=== PATIENT | female | born 1995 | race Caucasian/White ===

== ENCOUNTER 2017-06-12 17:31 | Emergency (ER) | payer OTHER ==
[~2017-06-12] VITALS: Ht 160 cm; Wt 48.5 kg
--- NOTE | 2017-06-12 17:38 | ED.ADGEN ---
Past History Past Medical History: UTI, Other Adult General Chief Complaint Chief Complaint " I think I got a really bad UTI... I get them.. just all sudden ... fever chills.. nausea and vomiting..." HPI HPI Patient is a 21 year old female who presents with above hx and complaints abdomen pain, fever, chills, myalgia, arthralgia and dysuria. Pt. has a history of urinary tract infections. She no history of immunosuppression. No history of travel or ill contacts. No history of bad food. No history of trauma. Patient has had 3 lifetime sex partners. Currently had a recent check for STD. Which was negative. One current sex partner. She has had previous appendectomy Review of Systems Review of Systems Constitutional: Complaints of fever or chills [] Eyes: Denies change in visual acuity, redness, or eye pain [] HENT: Denies nasal congestion or sore throat [] Respiratory: Denies cough or shortness of breath [] Cardiovascular: No additional information not addressed in HPI [] GI: Hx. abdominal pain, nausea,. Denies vomiting, bloody stools or diarrhea [] : Hx dysuria or hematuria [] Musculoskeletal: Denies back pain or joint pain [] Integument: Denies rash or skin lesions [] Neurologic: Denies headache, focal weakness or sensory changes [] Endocrine: Denies polyuria or polydipsia [] All other systems were reviewed and found to be within normal limits, except as documented in this note. Family History Family History Non-contributory Current Medications Current Medications Current Medications Medications (Trade) Dose Ordered Sig/Rahel Start Time Stop Time Status Last Admin Dose Admin Ceftriaxone Sodium 1 gm/ Sodium Chloride 50 ml @ 100 mls/hr 1X ONCE 06/12/17 21:00 06/12/17 21:29 DC 06/12/17 21:13 100 MLS/HR Ceftriaxone Sodium (Rocephin) 1 gm STK-MED ONCE 06/12/17 21:08 06/12/17 21:09 DC Famotidine (Pepcid Vial) 20 mg 1X ONCE 06/12/17 18:15 06/12/17 18:16 DC 06/12/17 18:55 20 MG Lactated Ringer's 1,000 ml @ 1,000 mls/hr Q1H 06/12/17 18:15 06/12/17 18:56 DC 06/12/17 18:56 1,000 MLS/HR Ondansetron HCl (Zofran) 8 mg 1X ONCE 06/12/17 18:15 06/12/17 18:16 DC 06/12/17 18:55 4 MG Oxycodone/ Acetaminophen (Percocet 5/325) 2 tab 1X ONCE 06/12/17 18:15 06/12/17 18:16 DC 06/12/17 18:55 2 TAB Phenazopyridine HCl (Pyridium) 200 mg 1X ONCE 06/12/17 21:45 06/12/17 21:46 DC 06/12/17 21:47 200 MG Sodium Chloride 50 ml @ As Directed STK-MED ONCE 06/12/17 21:08 06/12/17 21:09 DC Allergies Allergies Allergies Coded Allergies Type Severity Reaction Last Updated Verified ibuprofen Allergy Intermediate 06/12/17 Yes Physical Exam Physical Exam Constitutional: Well developed, well nourished,moderate distress, non-toxic appearance. [] HENT: Normocephalic, atraumatic, bilateral external ears normal, oropharynx moist, no oral exudates, nose normal. Nasal ring. Eyes: PERRLA, EOMI, conjunctiva normal, no discharge. [] Neck: Normal range of motion, no tenderness, supple, no stridor. [] Cardiovascular:Heart rate regular rhythm, no murmur [] Lungs & Thorax: Bilateral breath sounds clear to auscultation [] Abdomen: Bowel sounds normal, soft, supra pubic tenderness, no masses, no pulsatile masses. Declines rectal and pelvic exam at this time. Old surgery scar Skin: Warm, dry, no erythema, no rash. [] Back: No tenderness, no CVA tenderness. [] Extremities: No tenderness, no cyanosis, no clubbing, ROM intact, no edema. No psoas. Neurologic: Alert and oriented X 3, normal motor function, normal sensory function, no focal deficits noted. [] Psychologic: Affect normal, judgement normal, mood normal. [] Current Patient Data Vital Signs Vital Signs Date Time Temp Pulse Resp B/P (MAP) Pulse Ox O2 Delivery O2 Flow Rate FiO2 06/12/17 21:45 98 16 113/62 (79) 98 Room Air 06/12/17 17:50 97.6 Lab Results Laboratory Tests Test 06/12/17 19:20 06/12/17 20:34 White Blood Count 10.0 x10^3/uL (4.0-11.0) Red Blood Count 4.47 x10^6/uL (3.50-5.40) Hemoglobin 13.7 g/dL (12.0-15.5) Hematocrit 40.3 % (36.0-47.0) Mean Corpuscular Volume 90 fL (79-100) Mean Corpuscular Hemoglobin 31 pg (25-35) Mean Corpuscular Hemoglobin Concent 34 g/dL (31-37) Red Cell Distribution Width 13.1 % (11.5-14.5) Platelet Count 220 x10^3/uL (140-400) Neutrophils (%) (Auto) 78 % (31-73) H Lymphocytes (%) (Auto) 17 % (24-48) L Monocytes (%) (Auto) 4 % (0-9) Eosinophils (%) (Auto) 0 % (0-3) Basophils (%) (Auto) 0 % (0-3) Neutrophils # (Auto) 7.8 x10^3uL (1.8-7.7) H Lymphocytes # (Auto) 1.7 x10^3/uL (1.0-4.8) Monocytes # (Auto) 0.4 x10^3/uL (0.0-1.1) Eosinophils # (Auto) 0.0 x10^3/uL (0.0-0.7) Basophils # (Auto) 0.0 x10^3/uL (0.0-0.2) Prothrombin Time 12.2 SEC (9.4-11.4) H Prothrombin Time INR 1.2 (0.9-1.1) H PTT 27 SEC (23-33) Urine Collection Type Unknown Urine Color Yellow Urine Clarity Cloudy Urine pH 6.0 Urine Specific [place] >=1.030 Urine Protein 30 mg/dl (NEG-TRACE) Urine Glucose (UA) Neg mg/dL (NEG) Urine Ketones (Stick) 40 mg/dL (NEG) Urine Blood Small (NEG) Urine Nitrite Pos (NEG) Urine Bilirubin Neg (NEG) Urine Urobilinogen Dipstick 0.2 mg/dL (0.2 mg/dL) Urine Leukocyte Esterase Trace (NEG) Urine RBC Occ /HPF (0-2) Urine WBC 11-20 /HPF (0-4) Urine Squamous Epithelial Cells Many /LPF Urine Bacteria 0 /HPF (0-FEW) Sodium Level 141 mmol/L (136-145) Potassium Level 3.9 mmol/L (3.5-5.1) Chloride Level 105 mmol/L (98-107) Carbon Dioxide Level 24 mmol/L (21-32) Anion Gap 12 (6-14) Blood Urea Nitrogen 10 mg/dL (7-20) Creatinine 0.5 mg/dL (0.6-1.0) L Estimated GFR (Cockcroft-Gault) 158.9 Glucose Level 91 mg/dL (70-99) Calcium Level 9.7 mg/dL (8.5-10.1) Total Bilirubin 0.6 mg/dL (0.2-1.0) Direct Bilirubin 0.2 mg/dL (0.0-0.2) Aspartate Amino Transferase (AST) 12 U/L (15-37) L Alanine Aminotransferase (ALT) 16 U/L (14-59) Alkaline Phosphatase 78 U/L (46-116) Total Protein 7.8 g/dL (6.4-8.2) Albumin 4.4 g/dL (3.4-5.0) Lipase 66 U/L (73-393) L Urine Opiates Screen Neg (NEG) Urine Methadone Screen Neg (NEG) Urine Barbiturates Neg (NEG) Urine Phencyclidine Screen Neg (NEG) Urine Amphetamine/Methamphetamine Neg (NEG) Urine Benzodiazepines Screen Neg (NEG) Urine Cocaine Screen Neg (NEG) Urine Cannabinoids Screen Neg (NEG) Urine Ethyl Alcohol Neg (NEG) POC Urine HCG, Qualitative hcg negative (Negative) EKG EKG [] Radiology/Procedures Radiology/Procedures Patient declines[] radiographically evaluation at this time Course & Med Decision Making Course & Med Decision Making Pertinent Labs and Imaging studies reviewed. (See chart for details) 2129 Pt. feels much better. Requesting discharge. Pt still declines pelvic. Pt, will discharged on Keflex 500 x3 times a day. Take Diflucan after completing Keflex. Follow-up cultures. Push vitamin C drinks. Recommended clear fluid diet. Must follow-up primary care. Must follow-up cultures. [] Final Impression Final Impression 1. Abdomen pain 2. UTI[] Problems: Dragon Disclaimer Dragon Disclaimer This electronic medical record was generated, in whole or in part, using a voice recognition dictation system. SERGIO MORATAYA MD Jun 12, 2017 17:38
[2017-06-12] MEDS ORDERED: IV RINGERS SOLUTION,LACTATED 1,000 ML IV SCH (18:15)
[2017-06-12] MEDS ORDERED: oxyCODONE/APAP 5/325 1 TAB TABLET PO ONE (18:15)
[2017-06-12] MEDS ORDERED: ONDANSETRON PF 4 MG/2 ML VIAL. IV ONE (18:15)
[2017-06-12] MEDS ORDERED: FAMOTIDINE 20 MG/2 ML VIAL IVP ONE (18:15)
[2017-06-12 20:12] LABS: BASO % 0 % (0-3); EOS % 0 % (0-3); HEMATOCRIT 40.3 % (36.0-47.0); HEMOGLOBIN 13.7 g/dL (12.0-15.5); LYMPH # 1.7 x10^3/uL (1.0-4.8); LYMPH % 17 % (24-48); MEAN CORPUSCULAR HEMOGLOBIN 31 pg (25-35); MEAN CORPUSCULAR HGB CONC 34 g/dL (31-37); MEAN CORPUSCULAR VOLUME 90 fL (79-100); MONO # 0.4 x10^3/uL (0.0-1.1); MONO % 4 % (0-9); NEUT # 7.8 x10^3uL (1.8-7.7); NEUT % 78 % (31-73); PLATELET COUNT 220 x10^3/uL (140-400); RED BLOOD COUNT 4.47 x10^6/uL (3.50-5.40); RED CELL DISTRIBUTION WIDTH 13.1 % (11.5-14.5)
[2017-06-12 20:21] LABS: AMPHETAMINE/METHAMPHETAMINE NEG (NEG); BARBITURATES NEG (NEG); BENZODIAZEPINES NEG (NEG); CANNABINOIDS NEG (NEG); COCAINE NEG (NEG); METHADONE NEG (NEG); OPIATES NEG (NEG); PHENCYCLIDINE NEG (NEG)
[2017-06-12 20:26] LABS: ALBUMIN 4.4 g/dL (3.4-5.0); CALCIUM 9.7 mg/dL (8.5-10.1); CREATININE 0.5 mg/dL (0.6-1.0); DIRECT BILIRUBIN 0.2 mg/dL (0.0-0.2); GFR 158.9; POTASSIUM 3.9 mmol/L (3.5-5.1); TOTAL BILIRUBIN 0.6 mg/dL (0.2-1.0); TOTAL PROTEIN 7.8 g/dL (6.4-8.2)
[2017-06-12 20:58] LABS: CLARITY,URINE CLOUDY; COLOR,URINE YELLOW
[2017-06-12 20:59] LABS: GLUCOSE,URINE NEG (NEG)
[2017-06-12 21:00] LABS: BILIRUBIN,URINE NEG (NEG); NITRITE,URINE POS (NEG); UROBILINOGEN,URINE 0.2 mg/dL (0.2 mg/dL)
[2017-06-12 21:01] LABS: BACTERIA,URINE 0 /HPF (0-FEW); RBC,URINE OCC /HPF (0-2); SQUAMOUS EPITHELIAL CELL,UR MANY /LPF
[2017-06-12] MEDS ORDERED: cefTRIAXone SODIUM 1 GM VIAL IV ONE (21:08)
[2017-06-12] MEDS ORDERED: IV NORMAL SALINE 50ML 50 ML ONE (21:08)
[2017-06-12] MEDS ORDERED: CEPH-264 PO (21:21)
[2017-06-12] MEDS ORDERED: FLUC100T7 PO (21:21)
[2017-06-12 21:45] VITALS: BP 113/62
[2017-06-12] MEDS ORDERED: PHENAZOPYRIDINE 200 MG TABLET. PO ONE (21:45)
== END 2017-06-12 21:52 | disposition home or self-care (01) ==
LOC: ER 17:31
DX: N39.0 Urinary tract infection, site not specified (principal); Z87.440 Personal history of urinary (tract) infections; Z90.49 Acquired absence of other specified parts of digestive tract; Z88.6 Allergy status to analgesic agent
CPT/HCPCS: 36415; 80048; 80076; 80307; 81001; 81025; 83690; 85025; 85610; 85730; 87086; 87186; 96361; 96365; 96375; 99284; J0696; J2405; J7120; S0028; G0479

== ENCOUNTER 2017-07-31 03:18 | Emergency (ER) | payer OTHER ==
[~2017-07-31] VITALS: Ht 160 cm; Wt 49.9 kg
[~2017-07-31 03:18] MED LIST: CEPH-264 PO; FLUC100T7 PO
[2017-07-31] MEDS ORDERED: KETOROLAC 60 MG/2 ML VIAL. IM ONE (04:00)
[2017-07-31] MEDS ORDERED: KETOROLAC 30 MG/ML VIAL. ONE (04:06)
[2017-07-31] MEDS ORDERED: METH35.4 TP (04:10)
[2017-07-31] MEDS ORDERED: CYCL-331 PO (04:10)
[2017-07-31] MEDS ORDERED: NAPR-695 PO (04:10)
--- NOTE | 2017-07-31 04:14 | PHYS DOC ---
Past History Past Medical History: UTI, Other Past Surgical History: Appendectomy Alcohol Use: None Drug Use: Marijuana Adult General Chief Complaint Chief Complaint: BACK PAIN - NO INJURY HPI HPI Patient is a 21-year-old female with no significant past medical history who presents with complaints of lower back pain that is been going ongoing for a couple days. Patient denies any history of fevers, trauma, recent illness, dysuria or unusual vaginal discharge. Patient also denies abdominal pain. Patient denies incontinence, retention, saddle anesthesia or weakness. Review of Systems Review of Systems Constitutional: Denies fever or chills [] Respiratory: Denies cough or shortness of breath [] Cardiovascular: No pain GI: Denies abdominal pain, nausea, vomiting, bloody stools or diarrhea [] : Denies dysuria or hematuria or unusual vaginal discharge Musculoskeletal: As per history of present illness Integument: Denies rash or skin lesions [] Neurologic: Denies headache, focal weakness or sensory changes [] All other systems were reviewed and found to be within normal limits, except as documented in this note. Allergies Allergies Allergies Coded Allergies Type Severity Reaction Last Updated Verified ibuprofen Allergy Intermediate 06/12/17 Yes Physical Exam Physical Exam Constitutional: Well developed, well nourished, no acute distress, no visible pain, non-toxic appearance. Smiles during exam HENT: Normocephalic, atraumatic, Eyes: EOMI, conjunctiva normal, no discharge. [] Neck: Normal range of motion, no tenderness, supple, no stridor. No midline tenderness, no step-offs Cardiovascular:Heart rate regular rhythm, no murmur, normal perfusion Lungs & Thorax: Bilateral breath sounds clear to auscultation, no tachypnea Abdomen: Bowel sounds normal, soft, no tenderness, no masses, no pulsatile masses. [] Skin: Warm, dry, no erythema, no rash. [] Back: No midline tenderness, no step-offs. Mild tenderness to palpation middle to low back at paraspinal muscles. Active raise of lower extremities reproduces symptoms while passive leg raising does to a much lesser degree per patient. Extremities: No tenderness, no DVT, ROM intact, no edema. [] Neurologic: Alert and oriented X 3, normal motor function, normal lower extremity Reflexes, no focal deficits noted. Patient ambulates in the ED with normal gait and without assistance Psychologic: Affect normal, judgement normal, mood normal. [] Current Patient Data Vital Signs Vital Signs Date Time Temp Pulse Resp B/P (MAP) Pulse Ox O2 Delivery O2 Flow Rate FiO2 07/31/17 03:24 97.9 90 18 99 Room Air EKG EKG [] Radiology/Procedures Radiology/Procedures [] Course & Med Decision Making Course & Med Decision Making Pertinent Labs and Imaging studies reviewed. (See chart for details) Differential diagnosis: Transverse myelitis, osteomyelitis, trauma, vascular problem, infection, spinal cord compression, musculoskeletal problem. Patient is no distress, not ill-appearing, nontoxic. Physical exam is very benign and palpation of the paraspinal muscles of the lower back refused the patient's symptoms. Patient is able to sit up in bed in no discomfort and without limitation. Patient does not have midline tenderness in the spine nor does she have abdominal pain on palpation. My suspicion for significant spinal, bony, vascular or abdominal process is very low at the time of this ED evaluation. Given that the patient's physical exam is rather benign at this time and she does not have any limitations of movement I believe the patient is in stable condition for outpatient follow-up. I do not believe the patient is in need of imaging or labs at this time. Strict return precautions have been discussed with the patient who agrees to follow-up as directed [] Dragon Disclaimer Dragon Disclaimer This electronic medical record was generated, in whole or in part, using a voice recognition dictation system. Departure Departure: Impression: Primary Impression: Low back pain Disposition: HOME, SELF-CARE Condition: STABLE Referrals: PCP,NO (PCP) Please follow with your doctor or one of the clinics in the list provided to you for recheck and reevaluation in 2 days. If your symptoms worsen or new concerning symptoms develop please return to the ED immediately. Patient Instructions: Back Pain, Adult, Heat Therapy Scripts Methyl Salicylate/Menthol (ICY HOT CREAM) 35.4 Gm Cream..g. 35.4 GM TP BID for 5 Days, #10 EACH Prov: Gaby BEST MD 07/31/17 Cyclobenzaprine Hcl (CYCLOBENZAPRINE HCL) 10 Mg Tablet 1 TAB PO TID for 5 Days, #15 TAB Prov: Gaby BEST MD 07/31/17 Naproxen (NAPROXEN) 375 Mg Tablet 1 TAB PO BID for 5 Days, #10 TAB 5 Refills Prov: Gaby BEST MD 07/31/17 Gaby BEST MD Jul 31, 2017 04:14
[2017-07-31 04:20] VITALS: BP 116/64
[2017-07-31] MEDS ORDERED: ORPHENADRINE CITRATE 60 MG/2 ML VIAL. IM ONE (04:30)
== END 2017-07-31 04:25 | disposition home or self-care (01) ==
LOC: ER 03:18
DX: M54.5 Low back pain (principal); F12.10 Cannabis abuse, uncomplicated; Z87.440 Personal history of urinary (tract) infections; Z88.6 Allergy status to analgesic agent
CPT/HCPCS: 81025; 96372; 99284; J1885; J2360

== ENCOUNTER 2017-10-29 15:08 | Emergency (ER) | payer OTHER ==
[~2017-10-29] VITALS: Ht 157.5 cm; Wt 48.6 kg
[~2017-10-29 15:08] MED LIST changes: +CYCL-331 PO; +METH35.4 TP; +NAPR-695 PO
[2017-10-29] MEDS ORDERED: IV NORMAL SALINE 1,000ML 1,000 ML IV SCH (15:31)
[2017-10-29] MEDS ORDERED: 0.9 % SODIUM CHLORIDE 10 ML DISP.SYRIN. IV PRN (15:45)
[2017-10-29 16:06] LABS: BASO % 0 % (0-3); EOS # 0.1 x10^3/uL (0.0-0.7); EOS % 2 % (0-3); HEMATOCRIT 36.3 % (36.0-47.0); HEMOGLOBIN 12.4 g/dL (12.0-15.5); LYMPH # 2.4 x10^3/uL (1.0-4.8); LYMPH % 32 % (24-48); MEAN CORPUSCULAR HEMOGLOBIN 31 pg (25-35); MEAN CORPUSCULAR HGB CONC 34 g/dL (31-37); MEAN CORPUSCULAR VOLUME 92 fL (79-100); MONO # 0.5 x10^3/uL (0.0-1.1); MONO % 6 % (0-9); NEUT # 4.6 x10^3uL (1.8-7.7); NEUT % 60 % (31-73); PLATELET COUNT 255 x10^3/uL (140-400); RED BLOOD COUNT 3.95 x10^6/uL (3.50-5.40); RED CELL DISTRIBUTION WIDTH 13.8 % (11.5-14.5); WHITE BLOOD COUNT 7.7 x10^3/uL (4.0-11.0)
[2017-10-29] MEDS ORDERED: ONDANSETRON PF 4 MG/2 ML VIAL. IV ONE (16:10)
[2017-10-29 16:15] LABS: ALBUMIN 3.8 g/dL (3.4-5.0); ALBUMIN/GLOBULIN RATIO 1.2 (1.0-1.7); CALCIUM 8.9 mg/dL (8.5-10.1); CREATININE 0.6 mg/dL (0.6-1.0); GFR 128.8; POTASSIUM 4.1 mmol/L (3.5-5.1); TOTAL BILIRUBIN 0.4 mg/dL (0.2-1.0)
--- NOTE | 2017-10-29 16:46 | RAD ---
Ultrasound pelvis with transvaginal 10/29/2017 Clinical indication: Lower back and flank pain for one day. COMPARISON: None. FINDINGS: Uterus measures 7.4 x 3.5 x 6.4 cm. Endometrium is normal in thickness for age measuring 0.4 cm without abnormal endometrial blood flow. At the left anterior mid uterine segment, there is a hypoechoic intramural structure measuring 1.5 x 0.8 x 1.2 cm with central internal blood flow. Right ovary measures 4.2 x 2.3 x 1.9 cm with multiple physiologic follicles. Spectral analysis evidence of the right ovary demonstrates arterial and venous waveforms. Left ovary measures 2.5 x 2.3 x 3.2 cm with multiple physiologic follicles. Spectral analysis evidence demonstrates arterial and venous waveforms of the left ovary. There is no significant pelvic free fluid. IMPRESSION: 1. No ovarian torsion or significant pelvic free fluid. 2. Small, 1.5 cm, myometrial mass with internal blood flow and does not have features consistent with a typical fibroid. Finding is indeterminate between benign and malignant etiologies. MRI pelvis without with contrast is recommended for further evaluation. Electronically signed by: Isidoro Aparicio MD (10/29/2017 4:43 PM) [id number]
[2017-10-29 16:47] LABS: BACTERIA,URINE 0 /HPF (0-FEW); BILIRUBIN,URINE NEG (NEG); CLARITY,URINE CLEAR; COLOR,URINE STRAW; GLUCOSE,URINE NEG (NEG); NITRITE,URINE NEG (NEG); RBC,URINE OCC /HPF (0-2); SQUAMOUS EPITHELIAL CELL,UR MOD /LPF; UROBILINOGEN,URINE 0.2 mg/dL (0.2 mg/dL)
[2017-10-29 16:48] LABS: AMORPHOUS SEDIMENT,UR PRESENT /HPF
[2017-10-29] MEDS ORDERED: CYCL5TAB PO (17:20)
[2017-10-29] MEDS ORDERED: ONDA4TAB10 SL (17:20)
--- NOTE | 2017-10-29 17:21 | PHYS DOC ---
Past History Past Medical History: UTI, Other Past Surgical History: Appendectomy Alcohol Use: None Drug Use: Marijuana Adult General Chief Complaint Chief Complaint: My kidney hurts HPI HPI 21-year-old female patient states she had intermittent episodes of bilateral mid back pain for the last 3 months and had history of frequent UTI. Patient complaining of bilateral mid back pain for the last 2 days as a constant pain with urinary frequency and dysuria. Patient states she was seen by her primary care physician yesterday and was told that she doesn't have UTI. Patient states she still has pain and had 2 episodes of vomiting yesterday and one episode of vomiting today without fever, chills, abdominal pain, vaginal discharge. Her LMP was 10/27/17. Review of Systems Review of Systems Constitutional: Denies fever or chills [] Eyes: Denies change in visual acuity, redness, or eye pain [] HENT: Denies nasal congestion or sore throat [] Respiratory: Denies cough or shortness of breath [] Cardiovascular: No additional information not addressed in HPI [] GI: Denies abdominal pain, bloody stools or diarrhea , reports nausea and vomiting[] : Reports flank pain, dysuria and frequency Musculoskeletal: Denies back pain or joint pain [] Integument: Denies rash or skin lesions [] Neurologic: Denies headache, focal weakness or sensory changes [] Endocrine: Denies polyuria or polydipsia [] All other systems were reviewed and found to be within normal limits, except as documented in this note. Current Medications Current Medications Current Medications Medications (Trade) Dose Ordered Sig/Rahel Start Time Stop Time Status Last Admin Dose Admin Ondansetron HCl (Zofran Odt) 4 mg 1X ONCE 10/29/17 17:00 10/29/17 17:01 UNV Ondansetron HCl (Zofran) 4 mg 1X ONCE 10/29/17 16:10 10/29/17 16:59 DC Sodium Chloride (Normal Saline Flush) 10 ml QSHIFT PRN 10/29/17 15:45 10/29/17 16:59 DC Allergies Allergies Allergies Coded Allergies Type Severity Reaction Last Updated Verified No Known Drug Allergies 07/31/17 No Physical Exam Physical Exam Constitutional: Well developed, well nourished, no acute distress, non-toxic appearance. [] HENT: Normocephalic, atraumatic, bilateral external ears normal, oropharynx moist, no oral exudates, nose normal. [] Eyes: PERRLA, EOMI, conjunctiva normal, no discharge. [] Neck: Normal range of motion, no tenderness, supple, no stridor. [] Cardiovascular:Heart rate regular rhythm, no murmur [] Lungs & Thorax: Bilateral breath sounds clear to auscultation [] Abdomen: Bowel sounds normal, soft, no tenderness, no masses, no pulsatile masses. [] Skin: Warm, dry, no erythema, no rash. [] Back: No tenderness, no CVA tenderness. [] Extremities: No tenderness, no cyanosis, no clubbing, ROM intact, no edema. [] Neurologic: Alert and oriented X 3, normal motor function, normal sensory function, no focal deficits noted. [] Psychologic: Affect normal, judgement normal, mood normal. [] Current Patient Data Lab Results Laboratory Tests Test 10/29/17 15:26 10/29/17 15:42 10/29/17 16:00 POC Urine HCG, Qualitative hcg negative (Negative) White Blood Count 7.7 x10^3/uL (4.0-11.0) Red Blood Count 3.95 x10^6/uL (3.50-5.40) Hemoglobin 12.4 g/dL (12.0-15.5) Hematocrit 36.3 % (36.0-47.0) Mean Corpuscular Volume 92 fL (79-100) Mean Corpuscular Hemoglobin 31 pg (25-35) Mean Corpuscular Hemoglobin Concent 34 g/dL (31-37) Red Cell Distribution Width 13.8 % (11.5-14.5) Platelet Count 255 x10^3/uL (140-400) Neutrophils (%) (Auto) 60 % (31-73) Lymphocytes (%) (Auto) 32 % (24-48) Monocytes (%) (Auto) 6 % (0-9) Eosinophils (%) (Auto) 2 % (0-3) Basophils (%) (Auto) 0 % (0-3) Neutrophils # (Auto) 4.6 x10^3uL (1.8-7.7) Lymphocytes # (Auto) 2.4 x10^3/uL (1.0-4.8) Monocytes # (Auto) 0.5 x10^3/uL (0.0-1.1) Eosinophils # (Auto) 0.1 x10^3/uL (0.0-0.7) Basophils # (Auto) 0.0 x10^3/uL (0.0-0.2) Sodium Level 141 mmol/L (136-145) Potassium Level 4.1 mmol/L (3.5-5.1) Chloride Level 106 mmol/L (98-107) Carbon Dioxide Level 29 mmol/L (21-32) Anion Gap 6 (6-14) Blood Urea Nitrogen 10 mg/dL (7-20) Creatinine 0.6 mg/dL (0.6-1.0) Estimated GFR (Cockcroft-Gault) 128.8 BUN/Creatinine Ratio 17 (6-20) Glucose Level 88 mg/dL (70-99) Calcium Level 8.9 mg/dL (8.5-10.1) Total Bilirubin 0.4 mg/dL (0.2-1.0) Aspartate Amino Transferase (AST) 14 U/L (15-37) L Alanine Aminotransferase (ALT) 17 U/L (14-59) Alkaline Phosphatase 78 U/L (46-116) Total Protein 7.0 g/dL (6.4-8.2) Albumin 3.8 g/dL (3.4-5.0) Albumin/Globulin Ratio 1.2 (1.0-1.7) Urine Collection Type U cath Urine Color Straw Urine Clarity Clear Urine pH 7.5 Urine Specific [place] 1.015 Urine Protein Neg (NEG-TRACE) Urine Glucose (UA) Neg mg/dL (NEG) Urine Ketones (Stick) Neg mg/dL (NEG) Urine Blood Neg (NEG) Urine Nitrite Neg (NEG) Urine Bilirubin Neg (NEG) Urine Urobilinogen Dipstick 0.2 mg/dL (0.2 mg/dL) Urine Leukocyte Esterase Trace (NEG) Urine RBC Occ /HPF (0-2) Urine WBC 1-4 /HPF (0-4) Urine Squamous Epithelial Cells Mod /LPF Urine Amorphous Sediment Present /HPF Urine Bacteria 0 /HPF (0-FEW) EKG EKG [] Radiology/Procedures Radiology/Procedures [] [address] [address] IMAGING REPORT Signed PATIENT: KENNEDY MORRIS ACCOUNT: [id number] : 1995 LOCATION: ER AGE: 21 SEX: F EXAM STATUS: REG ER ORD. PHYSICIAN: ASHLEY MERCADO MD REASON: low-back pain PROCEDURE: US PELVIS W/TV Ultrasound pelvis with transvaginal 10/29/2017 Clinical indication: Lower back and flank pain for one day. COMPARISON: None. FINDINGS: Uterus measures 7.4 x 3.5 x 6.4 cm. Endometrium is normal in thickness for age measuring 0.4 cm without abnormal endometrial blood flow. At the left anterior mid uterine segment, there is a hypoechoic intramural structure measuring 1.5 x 0.8 x 1.2 cm with central internal blood flow. Right ovary measures 4.2 x 2.3 x 1.9 cm with multiple physiologic follicles. Spectral analysis evidence of the right ovary demonstrates arterial and venous waveforms. Left ovary measures 2.5 x 2.3 x 3.2 cm with multiple physiologic follicles. Spectral analysis evidence demonstrates arterial and venous waveforms of the left ovary. There is no significant pelvic free fluid. IMPRESSION: 1. No ovarian torsion or significant pelvic free fluid. 2. Small, 1.5 cm, myometrial mass with internal blood flow and does not have features consistent with a typical fibroid. Finding is indeterminate between benign and malignant etiologies. MRI pelvis without with contrast is recommended for further evaluation. Electronically signed by: Alvin Aparicio MD (10/29/2017 4:43 PM) [id number] DICTATED AND SIGNED BY: ALVIN APARICIO MD DATE: 10/29/17 1638 CC: RAJIV AWAD DO; ASHLEY MERCADO MD ~ Course & Med Decision Making Course & Med Decision Making Pertinent Labs and Imaging studies reviewed. (See chart for details) Personal patient in ER showed 21-year-old female patient with chronic bilateral back pain that getting force for the last couple days. Patient had unremarkable physical exam and labs. Pelvic ultrasound shows 1.5 cm uterine mass for possibility of fibroid or other problems and patient informed about the test results and needs for follow-up with her primary care physician for more evaluation. She was treated with Zofran in ER and felt better. Plan discharge patient home with diagnose of muscle pain. [] Dragon Disclaimer Dragon Disclaimer This electronic medical record was generated, in whole or in part, using a voice recognition dictation system. Departure Departure: Impression: Primary Impression: Lumbosacral strain Additional Impressions: Nausea and vomiting Mass of uterus Disposition: HOME, SELF-CARE (aT 1718) Condition: IMPROVED Referrals: RAJIV AWAD DO (PCP) Patient Instructions: Muscle Strain, Nausea and Vomiting Additional Instructions: Drink plenty of liquids Follow-up with your primary care physician in 3-5 days for abnormal pelvic ultrasound Return to ER if not getting better Scripts Ondansetron (ZOFRAN ODT) 4 Mg Tab.rapdis 1 TAB SL Q8HRS, #15 TAB Prov: ASHLEY MERCADO MD 10/29/17 Cyclobenzaprine Hcl (CYCLOBENZAPRINE HCL) 5 Mg Tablet 1 TAB PO TID, #15 TAB Prov: ASHLEY MERCADO MD 10/29/17 Problem Qualifiers ASHLEY MERCADO MD October 29, 2017 17:21
[2017-10-29] MEDS ORDERED: ONDANSETRON ODT 4 MG TAB.RAPDIS PO ONE (17:30)
[2017-10-29 17:40] VITALS: BP 108/64
== END 2017-10-29 17:51 | disposition home or self-care (01) ==
LOC: ER 15:08
DX: S39.012A Strain of muscle, fascia and tendon of lower back, initial encounter (principal); R11.2 Nausea with vomiting, unspecified; N85.8 Other specified noninflammatory disorders of uterus; F12.10 Cannabis abuse, uncomplicated; Z87.440 Personal history of urinary (tract) infections; Z90.49 Acquired absence of other specified parts of digestive tract; X58.XXXA Exposure to other specified factors, initial encounter; Y93.89 Activity, other specified; Y99.8 Other external cause status; Y92.89 Other specified places as the place of occurrence of the external cause
CPT/HCPCS: 36415; 51701; 76830; 76856; 80053; 81001; 81025; 85025; 87086; 99285; Q0162

== ENCOUNTER 2017-12-17 22:42 | Emergency (ER) | payer OTHER ==
[~2017-12-17] VITALS: Ht 157.5 cm; Wt 48.6 kg
[2017-12-17 22:42] VITALS: BP 108/51
[~2017-12-17 22:42] MED LIST changes: +CYCL5TAB PO; +ONDA4TAB10 SL
--- NOTE | 2017-12-17 23:13 | ED.ADGEN ---
Past History Past Medical History: UTI, Other Past Surgical History: Appendectomy Alcohol Use: None Drug Use: Marijuana Adult General Chief Complaint Chief Complaint ". I think I got a bad urinary tract infection again.. It hopson like fire when I pee.. ". " No vaginal discharge.. ".. " I don't have any lesions down there... I sure it a UTI... " HPI HPI Patient is a 22 year old female who presents with above hx and complaints dysuria with urination. Pt. states it happens after sex. Pt. has had recurrent UTI s after sex. Pt. denies any vaginal discharge. Patient denies any trauma. Patient denies immunosuppression. Patient denies any travel. Patient denies any specific ill contacts. She denies any history of STDs. Review of Systems Review of Systems Constitutional: Denies fever or chills [] Eyes: Denies change in visual acuity, redness, or eye pain [] HENT: Denies nasal congestion or sore throat [] Respiratory: Denies cough or shortness of breath [] Cardiovascular: No additional information not addressed in HPI [] GI: Denies abdominal pain, nausea, vomiting, bloody stools or diarrhea [] : Complaints of of dysuria Musculoskeletal: Denies back pain or joint pain [] Integument: Denies rash or skin lesions [] Neurologic: Denies headache, focal weakness or sensory changes [] Endocrine: Denies polyuria or polydipsia [] All other systems were reviewed and found to be within normal limits, except as documented in this note. Family History Family History Sister also gets frequent urinary tract infections Current Medications Current Medications Current Medications Medications (Trade) Dose Ordered Sig/Rahel Start Time Stop Time Status Last Admin Dose Admin Ibuprofen (Motrin) 600 mg 1X ONCE 12/17/17 23:45 12/17/17 23:46 DC 12/18/17 00:17 600 MG Phenazopyridine HCl (Pyridium) 200 mg 1X ONCE 12/17/17 23:45 12/17/17 23:46 DC 12/18/17 00:16 200 MG Trimethoprim/ Sulfamethoxazole (Bactrim Ds) 1 tab 1X ONCE 12/17/17 23:45 12/17/17 23:46 DC 12/18/17 00:16 1 TAB Allergies Allergies Allergies Coded Allergies Type Severity Reaction Last Updated Verified No Known Drug Allergies 07/31/17 No Physical Exam Physical Exam Constitutional: Well developed, well nourished, no acute distress, non-toxic appearance. [] HENT: Normocephalic, atraumatic, bilateral external ears normal, oropharynx moist, no oral exudates, nose normal. [] Eyes: PERRLA, EOMI, conjunctiva normal, no discharge. [] Neck: Normal range of motion, no tenderness, supple, no stridor. [] Cardiovascular:Heart rate regular rhythm, no murmur [] Lungs & Thorax: Bilateral breath sounds equal few scattered wheezes on auscultation [] Abdomen: Bowel sounds normal, soft, mild suprapubic tenderness, no masses, no pulsatile masses. [] Patient denies vaginal discharge. Defers pelvic exam at this time. Appendix Scar. Skin: Warm, dry, no erythema, no rash. [] Back: No tenderness, no CVA tenderness. [] Extremities: No tenderness, no cyanosis, no clubbing, ROM intact, no edema. [] Neurologic: Alert and oriented X 3, normal motor function, normal sensory function, no focal deficits noted. [] Psychologic: Affect anxious, judgement normal, mood normal. [] Current Patient Data Vital Signs Vital Signs Date Time Temp Pulse Resp B/P (MAP) Pulse Ox O2 Delivery O2 Flow Rate FiO2 12/17/17 22:42 98.4 96 18 98 Room Air Lab Results Laboratory Tests Test 12/17/17 22:36 12/17/17 23:00 POC Urine HCG, Qualitative hcg negative (Negative) Urine Collection Type Unknown Urine Color Yellow Urine Clarity Clear Urine pH 5.5 Urine Specific [place] >=1.030 Urine Protein Trace (NEG-TRACE) Urine Glucose (UA) Neg mg/dL (NEG) Urine Ketones (Stick) Trace mg/dL (NEG) Urine Blood Neg (NEG) Urine Nitrite Neg (NEG) Urine Bilirubin Neg (NEG) Urine Urobilinogen Dipstick 0.2 mg/dL (0.2 mg/dL) Urine Leukocyte Esterase Neg (NEG) Urine RBC Occ /HPF (0-2) Urine WBC Occ /HPF (0-4) Urine Squamous Epithelial Cells Few /LPF Urine Bacteria 0 /HPF (0-FEW) EKG EKG [] Radiology/Procedures Radiology/Procedures [] Course & Med Decision Making Course & Med Decision Making Pertinent Labs and Imaging studies reviewed. (See chart for details). Patient follow up urine cultures. Patient complete full pelvic exam if persistent discomfort or urination. Patient currently requesting only treatment symptomatically. Patient states she frequently develops UTI. Pt. requesting discharge with Rx fo antibiotic. Does not want to wait for urine results. [] Final Impression Final Impression 1. UTI- Hx. 2. Dysuria Dragon Disclaimer Dragon Disclaimer This electronic medical record was generated, in whole or in part, using a voice recognition dictation system. SERGIO MORATAYA MD Dec 17, 2017 23:13
[2017-12-17] MEDS ORDERED: SULF1TAB24 PO (23:36)
[2017-12-17] MEDS ORDERED: SMZ/TMP 800/160MG TABLET. PO ONE (23:45)
[2017-12-17] MEDS ORDERED: IBUPROFEN 600 MG TABLET. PO ONE (23:45)
[2017-12-17] MEDS ORDERED: PHENAZOPYRIDINE 200 MG TABLET. PO ONE (23:45)
[2017-12-17 23:49] LABS: BACTERIA,URINE 0 /HPF (0-FEW); BILIRUBIN,URINE NEG (NEG); CLARITY,URINE CLEAR; COLOR,URINE YELLOW; GLUCOSE,URINE NEG (NEG); NITRITE,URINE NEG (NEG); RBC,URINE OCC /HPF (0-2); UROBILINOGEN,URINE 0.2 mg/dL (0.2 mg/dL); WBC,URINE OCC /HPF (0-4)
[2017-12-17 23:50] LABS: SQUAMOUS EPITHELIAL CELL,UR FEW /LPF
== END 2017-12-18 00:15 | disposition home or self-care (01) ==
LOC: ER 22:42
DX: R30.0 Dysuria (principal); Z87.440 Personal history of urinary (tract) infections
CPT/HCPCS: 81001; 81025; 99284

== ENCOUNTER 2017-12-20 04:24 | Emergency (ER) | payer OTHER ==
[~2017-12-20] VITALS: Ht 157.5 cm; Wt 48.4 kg
[~2017-12-20 04:24] MED LIST changes: +SULF1TAB24 PO
--- NOTE | 2017-12-20 04:26 | ED.ADGEN ---
Past History Past Medical History: Anxiety, Constipation, Depression, UTI, Other (SERGIO MORATAYA MD) Past Surgical History: Appendectomy (SERGIO MORATAYA MD) Alcohol Use: None Drug Use: Marijuana (SERGIO MORATAYA MD) Adult General Chief Complaint Chief Complaint "I ve been vomiting since I started the Bactrim on last visit (12/17).. I have not a poop since I was last here...I think it is the Bactrim.. I got my follow up with Dr. Saavedra..." (SERGIO MORATAYA MD) HPI HPI Patient is a 22 year old female who presents with above hx of nausea and vomiting with Bactrim use. Pt. Seen on 12/17 by me and was treated for suspected UTI by Hx. Pt. at that time did not want to wait for UA results . Pt. did have mild elevation WBC. On review UA at time was un impressive.. Pt denies vaginal discharge, fever, trauma, travel, bad food, or ill contacts. Pt. at that time declined vaginal exam stating Dr. Saavedra had completed one. Pt. still denies vaginal symptoms and still declines exam at this time. Pt. has eaten since discharge on 12/17, but has had no stool. Has passed gas. 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 Pt. follows with Dr. Saavedra and seen her on 12/20. Pt. last period on 11/25. Pt. does have hx of painful periods. Pt. still localizes pain lower, but now more epigastric and in umbilical area. Pt. epigastric pain on vomiting. Pt. has had previous appendectomy. Has had hx of some ovarian cysts. (SERGIO MORATAYA MD) Review of Systems Review of Systems Constitutional: Denies fever or chills [] Eyes: Denies change in visual acuity, redness, or eye pain [] HENT: Denies nasal congestion or sore throat [] Respiratory: Denies cough or shortness of breath [] Cardiovascular: No additional information not addressed in HPI [] GI: Complaints of abdominal pain, nausea, vomiting, and constipation. : Hx of dysuria . Musculoskeletal: Denies back pain or joint pain [] Integument: Denies rash or skin lesions [] Neurologic: Denies headache, focal weakness or sensory changes [] Endocrine: Denies polyuria or polydipsia [] All other systems were reviewed and found to be within normal limits, except as documented in this note. (SERGIO MORATAYA MD) Family History Family History Non-contributory (SERGIO MORATAYA MD) Current Medications Current Medications Current Medications Medications (Trade) Dose Ordered Sig/Rahel Start Time Stop Time Status Last Admin Dose Admin Diphenhydramine HCl (Benadryl) 50 mg 1X ONCE 12/20/17 05:00 12/20/17 05:01 DC 12/20/17 05:01 50 MG Famotidine (Pepcid) 20 mg 1X ONCE 12/20/17 05:00 12/20/17 05:01 DC 12/20/17 05:01 20 MG Info (Do NOT chart on this entry -- for MONITORING) 1 each PRN DAILY PRN 12/20/17 05:15 12/22/17 05:14 Iohexol (Omnipaque 240 Mg/ml) 50 ml 1X ONCE 12/20/17 05:30 12/20/17 05:31 DC Iohexol (Omnipaque 300 Mg/ml) 75 ml 1X ONCE 12/20/17 05:30 12/20/17 05:31 DC 12/20/17 06:39 75 ML Ketorolac Tromethamine (Toradol) 15 mg 1X ONCE 12/20/17 05:30 12/20/17 05:31 DC 12/20/17 05:01 15 MG Lactated Ringer's 1,000 ml @ 1,000 mls/hr 1X ONCE 12/20/17 06:00 12/20/17 06:59 DC 12/20/17 06:10 1,000 MLS/HR Magnesium Hydroxide (Milk Of Magnesia) 2,400 mg 1X ONCE 12/20/17 05:30 12/20/17 05:31 DC 12/20/17 05:01 2,400 MG Morphine Sulfate (Morphine 10mg Syringe) 10 mg 1X ONCE 12/20/17 06:00 12/20/17 06:01 DC 12/20/17 05:29 10 MG Ondansetron HCl (Zofran Odt) 8 mg 1X ONCE 12/20/17 05:00 12/20/17 05:01 DC 12/20/17 05:01 8 MG Promethazine HCl (Phenergan Im) 25 mg 1X ONCE 12/20/17 05:00 12/20/17 05:01 DC 12/20/17 05:21 25 MG Promethazine HCl (Phenergan) 25 mg STK-MED ONCE 12/20/17 05:06 12/20/17 05:07 DC (ROSANA GARCIA MD) Current Medications See Nursing for home meds (SERGIO MORATAYA MD) Allergies Allergies Allergies Coded Allergies Type Severity Reaction Last Updated Verified No Known Drug Allergies 12/20/17 No (ROSANA GARCIA MD) Physical Exam Physical Exam Constitutional: Well developed, well nourished, moderated distress, non-toxic appearance. [] HENT: Normocephalic, atraumatic, bilateral external ears normal, oropharynx moist, no oral exudates, nose normal. [] Eyes: PERRLA, EOMI, conjunctiva normal, no discharge. [] Neck: Normal range of motion, no tenderness, supple, no stridor. [] Cardiovascular:Heart rate regular rhythm, no murmur [] Lungs & Thorax: Bilateral breath sounds clear to auscultation [] Abdomen: Bowel sounds normal, soft, periumbilical tenderness, no masses, no pulsatile masses. [] Distended. Old surgery scars. Declines rectal or pelvic exam. Some generalized rebound. Skin: Warm, dry, no erythema, no rash. [] Back: No tenderness, no CVA tenderness. [] Extremities: No tenderness, no cyanosis, no clubbing, ROM intact, no edema. [] Neurologic: Alert and oriented X 3, normal motor function, normal sensory function, no focal deficits noted. [] Psychologic: Affect anxious, judgement normal, mood normal. [] (SERGIO MORATAYA MD) Current Patient Data Vital Signs Vital Signs Date Time Temp Pulse Resp B/P (MAP) Pulse Ox O2 Delivery O2 Flow Rate FiO2 12/20/17 06:07 86 16 110/46 (67) 100 Room Air 12/20/17 04:24 97.7 (ROSANA GARCIA MD) Lab Results Laboratory Tests Test 12/20/17 04:26 12/20/17 05:00 12/20/17 05:45 12/20/17 05:47 POC Urine HCG, Qualitative hcg negative (Negative) White Blood Count 13.6 x10^3/uL (4.0-11.0) H Red Blood Count 4.52 x10^6/uL (3.50-5.40) Hemoglobin 14.1 g/dL (12.0-15.5) Hematocrit 41.1 % (36.0-47.0) Mean Corpuscular Volume 91 fL (79-100) Mean Corpuscular Hemoglobin 31 pg (25-35) Mean Corpuscular Hemoglobin Concent 34 g/dL (31-37) Red Cell Distribution Width 13.8 % (11.5-14.5) Platelet Count 248 x10^3/uL (140-400) Neutrophils (%) (Auto) 67 % (31-73) Lymphocytes (%) (Auto) 22 % (24-48) L Monocytes (%) (Auto) 8 % (0-9) Eosinophils (%) (Auto) 3 % (0-3) Basophils (%) (Auto) 0 % (0-3) Neutrophils # (Auto) 9.1 x10^3uL (1.8-7.7) H Lymphocytes # (Auto) 3.0 x10^3/uL (1.0-4.8) Monocytes # (Auto) 1.1 x10^3/uL (0.0-1.1) Eosinophils # (Auto) 0.3 x10^3/uL (0.0-0.7) Basophils # (Auto) 0.1 x10^3/uL (0.0-0.2) Sodium Level 140 mmol/L (136-145) Potassium Level 3.7 mmol/L (3.5-5.1) Chloride Level 105 mmol/L (98-107) Carbon Dioxide Level 25 mmol/L (21-32) Anion Gap 10 (6-14) Blood Urea Nitrogen 13 mg/dL (7-20) Creatinine 0.6 mg/dL (0.6-1.0) Estimated GFR (Cockcroft-Gault) 127.5 Glucose Level 79 mg/dL (70-99) Calcium Level 8.7 mg/dL (8.5-10.1) Lipase 97 U/L (73-393) Urine Collection Type Unknown Urine Color Yellow Urine Clarity Hazy Urine pH 7.0 Urine Specific [place] 1.025 Urine Protein 30 mg/dl (NEG-TRACE) Urine Glucose (UA) Neg mg/dL (NEG) Urine Ketones (Stick) Neg mg/dL (NEG) Urine Blood Trace (NEG) Urine Nitrite Neg (NEG) Urine Bilirubin Neg (NEG) Urine Urobilinogen Dipstick 1 mg/dL (0.2 mg/dL) Urine Leukocyte Esterase Neg (NEG) Urine RBC 1-2 /HPF (0-2) Urine WBC Occ /HPF (0-4) Urine Squamous Epithelial Cells Mod /LPF Urine Amorphous Sediment Present /HPF Urine Bacteria Few /HPF (0-FEW) Urine Mucus Slight /LPF Urine Opiates Screen Neg (NEG) Urine Methadone Screen Neg (NEG) Urine Barbiturates Neg (NEG) Urine Phencyclidine Screen Neg (NEG) Urine Amphetamine/Methamphetamine Neg (NEG) Urine Benzodiazepines Screen Neg (NEG) Urine Cocaine Screen Neg (NEG) Urine Cannabinoids Screen Neg (NEG) Urine Ethyl Alcohol Neg (NEG) Total Bilirubin 0.3 mg/dL (0.2-1.0) Direct Bilirubin 0.1 mg/dL (0.0-0.2) Aspartate Amino Transferase (AST) 20 U/L (15-37) Alanine Aminotransferase (ALT) 17 U/L (14-59) Alkaline Phosphatase 67 U/L (46-116) Total Protein 7.0 g/dL (6.4-8.2) Albumin 3.8 g/dL (3.4-5.0) (ROSANA GARCIA MD) Lab Results Laboratory Tests Test 12/20/17 04:26 12/20/17 05:00 12/20/17 05:45 POC Urine HCG, Qualitative hcg negative (Negative) White Blood Count 13.6 x10^3/uL (4.0-11.0) H Red Blood Count 4.52 x10^6/uL (3.50-5.40) Hemoglobin 14.1 g/dL (12.0-15.5) Hematocrit 41.1 % (36.0-47.0) Mean Corpuscular Volume 91 fL (79-100) Mean Corpuscular Hemoglobin 31 pg (25-35) Mean Corpuscular Hemoglobin Concent 34 g/dL (31-37) Red Cell Distribution Width 13.8 % (11.5-14.5) Platelet Count 248 x10^3/uL (140-400) Neutrophils (%) (Auto) 67 % (31-73) Lymphocytes (%) (Auto) 22 % (24-48) L Monocytes (%) (Auto) 8 % (0-9) Eosinophils (%) (Auto) 3 % (0-3) Basophils (%) (Auto) 0 % (0-3) Neutrophils # (Auto) 9.1 x10^3uL (1.8-7.7) H Lymphocytes # (Auto) 3.0 x10^3/uL (1.0-4.8) Monocytes # (Auto) 1.1 x10^3/uL (0.0-1.1) Eosinophils # (Auto) 0.3 x10^3/uL (0.0-0.7) Basophils # (Auto) 0.1 x10^3/uL (0.0-0.2) Sodium Level 140 mmol/L (136-145) Potassium Level 3.7 mmol/L (3.5-5.1) Chloride Level 105 mmol/L (98-107) Carbon Dioxide Level 25 mmol/L (21-32) Anion Gap 10 (6-14) Blood Urea Nitrogen 13 mg/dL (7-20) Creatinine 0.6 mg/dL (0.6-1.0) Estimated GFR (Cockcroft-Gault) 127.5 Glucose Level 79 mg/dL (70-99) Calcium Level 8.7 mg/dL (8.5-10.1) Lipase 97 U/L (73-393) Urine Collection Type Unknown Urine Color Yellow Urine Clarity Hazy Urine pH 7.0 Urine Specific [place] 1.025 Urine Protein 30 mg/dl (NEG-TRACE) Urine Glucose (UA) Neg mg/dL (NEG) Urine Ketones (Stick) Neg mg/dL (NEG) Urine Blood Trace (NEG) Urine Nitrite Neg (NEG) Urine Bilirubin Neg (NEG) Urine Urobilinogen Dipstick 1 mg/dL (0.2 mg/dL) Urine Leukocyte Esterase Neg (NEG) Urine RBC 1-2 /HPF (0-2) Urine WBC Occ /HPF (0-4) Urine Squamous Epithelial Cells Mod /LPF Urine Amorphous Sediment Present /HPF Urine Bacteria Few /HPF (0-FEW) Urine Mucus Slight /LPF Urine Opiates Screen Neg (NEG) Urine Methadone Screen Neg (NEG) Urine Barbiturates Neg (NEG) Urine Phencyclidine Screen Neg (NEG) Urine Amphetamine/Methamphetamine Neg (NEG) Urine Benzodiazepines Screen Neg (NEG) Urine Cocaine Screen Neg (NEG) Urine Cannabinoids Screen Neg (NEG) Urine Ethyl Alcohol Neg (NEG) (SERGIO MORATAYA MD) EKG EKG [] (SERGIO MORATAYA MD) Radiology/Procedures Radiology/Procedures My interpretation of acute abdomen film shows no acute cardiopulmonary findings. No free air in the diaphragm. Does have stool throughout the colon. Findings somewhat consistent with constipation. Nonspecific bowel gas pattern. CT of abd/ pelvis pending at time of shift change. (SERGIO MORATAYA MD) Course & Med Decision Making Course & Med Decision Making Pertinent Labs and Imaging studies reviewed. (See chart for details) Discussed presentation, testing and current tx. plan with Dr. Garcia- He will make disposition of pt. [] (SERGIO MORATAYA MD) Final Impression Final Impression 1. Abdomen Pain 2. Hx.of Dysuria, Hx. UTI's 3. Nausea and Vomiting with Bactrim 4. Constipation 5. Myometrial Mass 1.5 cm with internal blood flow Uterine - US 10/29 [] (SERGIO MORATAYA MD) Dragon Disclaimer Dragon Disclaimer This electronic medical record was generated, in whole or in part, using a voice recognition dictation system. (SERGIO MORATAYA MD) Assessment/Plan Assessment/Plan 22-year-old female presenting to the emergency department with abdominal pain. Patient was seen by previous provider. I independently examined the patient. The patient has abdominal pain in the periumbilical region with a history of an appendectomy. Plan prior to sign out was to follow-up on CT for acute findings. Patient has mild leukocytosis on laboratory blood work. Chemistry panel was unremarkable. Urinalysis unremarkable. CT the abdomen pelvis shows no acute findings. First abdominal exam at 6:15 AM and secondary abdominal exam at approximately 8:[address] report is back. Both abdominal exams demonstrated a soft nontender abdomen without rebound tenderness or guarding. Negative McBurney's point. Negative Venegas sign. Patient declines to have a pelvic exam for the examination of abdominal pain and she denies changes in vaginal discharge or vaginal bleeding or recent exposure to STDs. The patient has been examined and was not found to have an emergency medical condition. The patient was then discharged home in stable condition to follow up with their primary care physician over the next 2-3 days. They were to return if their symptoms worsened or if they were concerned for any reason. [id number] discharge instructions and return precautions were given. Patient's questions were answered to their satisfaction. Patient is comfortable with plan. (ROSANA GARCIA MD) SERGIO MORATAYA MD Dec 20, 2017 04:26 ROSANA GARCIA MD Dec 20, 2017 08:57
[2017-12-20] MEDS ORDERED: ONDANSETRON ODT 4 MG TAB.RAPDIS PO ONE (05:00)
[2017-12-20] MEDS ORDERED: FAMOTIDINE 20 MG TABLET PO ONE (05:00)
[2017-12-20] MEDS ORDERED: diphenhydrAMINE 50 MG/ML VIAL IV ONE (05:00)
[2017-12-20] MEDS ORDERED: IV RINGERS SOLUTION,LACTATED 1,000 ML IV SCH (05:00)
[2017-12-20] MEDS ORDERED: PROMETHAZINE IM 25 MG/ML VIAL IM ONE (05:00)
[2017-12-20] MEDS ORDERED: PROMETHAZINE 25 MG/ML VIAL IV ONE (05:06)
[2017-12-20] MEDS ORDERED: PROMETHAZINE 25 MG TABLET. ONE (05:06)
[2017-12-20] MEDS ORDERED: CONTRAST GIVEN MC PRN (05:15)
[2017-12-20 05:18] LABS: BASO # 0.1 x10^3/uL (0.0-0.2); BASO % 0 % (0-3); EOS # 0.3 x10^3/uL (0.0-0.7); EOS % 3 % (0-3); HEMATOCRIT 41.1 % (36.0-47.0); HEMOGLOBIN 14.1 g/dL (12.0-15.5); LYMPH % 22 % (24-48); MEAN CORPUSCULAR HEMOGLOBIN 31 pg (25-35); MEAN CORPUSCULAR HGB CONC 34 g/dL (31-37); MEAN CORPUSCULAR VOLUME 91 fL (79-100); MONO # 1.1 x10^3/uL (0.0-1.1); MONO % 8 % (0-9); NEUT # 9.1 x10^3uL (1.8-7.7); NEUT % 67 % (31-73); PLATELET COUNT 248 x10^3/uL (140-400); RED BLOOD COUNT 4.52 x10^6/uL (3.50-5.40); RED CELL DISTRIBUTION WIDTH 13.8 % (11.5-14.5); WHITE BLOOD COUNT 13.6 x10^3/uL (4.0-11.0)
[2017-12-20 05:21] LABS: CALCIUM 8.7 mg/dL (8.5-10.1); CREATININE 0.6 mg/dL (0.6-1.0); GFR 127.5; POTASSIUM 3.7 mmol/L (3.5-5.1)
[2017-12-20] MEDS ORDERED: MAGNESIUM HYDROXIDE 2,400 MG/30 ML ORAL.SUSP. PO ONE (05:30)
[2017-12-20] MEDS ORDERED: KETOROLAC 15 MG/ML VIAL. IV ONE (05:30)
[2017-12-20] MEDS ORDERED: IOHEXOL 300 MG/ML 75 ML VIAL. IV ONE (05:30)
[2017-12-20] MEDS ORDERED: IOHEXOL 240 MG/ML 50ML VIAL. PO ONE (05:30)
[2017-12-20] MEDS ORDERED: MORPHINE SULFATE 10 MG/ML SYRINGE. SQ ONE (06:00)
[2017-12-20] MEDS ORDERED: IV RINGERS SOLUTION,LACTATED 1,000 ML IV ONE (06:00)
[2017-12-20 06:03] LABS: BILIRUBIN,URINE NEG (NEG); CLARITY,URINE HAZY; COLOR,URINE YELLOW; GLUCOSE,URINE NEG (NEG)
[2017-12-20 06:04] LABS: AMORPHOUS SEDIMENT,UR PRESENT /HPF; BACTERIA,URINE FEW /HPF (0-FEW); NITRITE,URINE NEG (NEG); SQUAMOUS EPITHELIAL CELL,UR MOD /LPF; UROBILINOGEN,URINE 1 mg/dL (0.2 mg/dL); WBC,URINE OCC /HPF (0-4)
[2017-12-20 06:07] VITALS: BP 110/46
[2017-12-20 06:10] LABS: AMPHETAMINE/METHAMPHETAMINE NEG (NEG); BARBITURATES NEG (NEG); BENZODIAZEPINES NEG (NEG); CANNABINOIDS NEG (NEG); COCAINE NEG (NEG); METHADONE NEG (NEG); OPIATES NEG (NEG); PHENCYCLIDINE NEG (NEG)
[2017-12-20 06:34] LABS: ALBUMIN 3.8 g/dL (3.4-5.0); DIRECT BILIRUBIN 0.1 mg/dL (0.0-0.2); TOTAL BILIRUBIN 0.3 mg/dL (0.2-1.0)
--- NOTE | 2017-12-20 08:44 | RAD ---
Single view chest with upright and AP views abdomen 12/20/2017 CLINICAL INDICATION: Abdominal pain, nausea and vomiting. COMPARISON: Same day CT abdomen and pelvis Findings: Cardiac and mediastinal silhouettes are unremarkable. No pleural effusion, pneumothorax or focal consolidation. There is a nonobstructive bowel gas pattern. No pneumoperitoneum. There is a moderate amount of retained colonic stool proximally. IMPRESSION: 1. No acute cardiopulmonary abnormality. 2. No radiographic evidence of bowel obstruction or pneumoperitoneum. 3. Moderate proximal retained colonic stool, may contribute to constipation. Electronically signed by: Isidoro Aparicio MD (12/20/2017 8:40 AM) [facility]
--- NOTE | 2017-12-20 08:47 | RAD ---
CT abdomen and pelvis with contrast 12/20/2017 Clinical indication: Abdominal pain. COMPARISON: Same day abdominal radiograph. TECHNIQUE: Multiple CT images of the abdomen and pelvis were obtained following the intravenous administration of 75 mL Omnipaque 300. *One or more of the following individualized dose reduction techniques were utilized for this examination: 1. Automated exposure control. 2. Adjustment of the mA and/or kV according to patient size. 3. Use of iterative reconstruction technique. FINDINGS: Heart size is normal. Visualized lung bases are clear. Liver, spleen, gallbladder, adrenal glands, pancreas and kidneys are unremarkable. No biliary ductal dilatation. Abdominal aorta normal in caliber. Major portal, splenic and visualized superior mesenteric veins are patent. Small and large bowel loops are normal in caliber without obstruction. No pneumoperitoneum. Trace pelvic free fluid, likely physiologic. No retroperitoneal or mesenteric lymphadenopathy. Mildly distended unopacified urinary bladder, uterus and adnexa are unremarkable. Bilateral L5 spondylolysis without listhesis. IMPRESSION: No CT evidence of acute abdominal or pelvic process. Electronically signed by: Isidoro Aparicio MD (12/20/2017 8:43 AM) [facility]
== END 2017-12-20 09:00 | disposition home or self-care (01) ==
LOC: ER 04:24
DX: K59.00 Constipation, unspecified (principal); R11.2 Nausea with vomiting, unspecified; N85.8 Other specified noninflammatory disorders of uterus; F41.9 Anxiety disorder, unspecified; F32.9 Major depressive disorder, single episode, unspecified; Z87.440 Personal history of urinary (tract) infections; Z90.49 Acquired absence of other specified parts of digestive tract
CPT/HCPCS: 36415; 74022; 74177; 80048; 80076; 80307; 81001; 81025; 83690; 85025; 96361; 96372; 96374; 96375; 99285; J1200; J1885; J2270; J2550; J7120; Q0162; Q9967; G0479

== ENCOUNTER → 2018-01-07 | Outpatient (CLI) | payer OTHER ==
[2017-12-20 06:07] VITALS: BP 110/46
--- NOTE | 2018-01-08 07:55 | RAD ---
JON, 01/07/2018: HISTORY: Ongoing constipation Comparison is made to a study from 12/20/2017. There is a moderate amount of stool in the colon. There is a moderate amount retained food in the stomach. The abdominal gas pattern is otherwise unremarkable. There is no evidence organomegaly. A calcification in the mid to upper pelvis on the right is probably a phlebolith. IMPRESSION: 1. Moderate amount of retained food in the stomach. 2. Moderate amount of stool throughout the colon. Electronically signed by: Yo Powell MD (01/08/2018 7:52 AM) [facility]
== END | disposition home or self-care (01) ==
LOC: RAD 17:41
PROVIDERS: ATTEND Nurse Practitioner Family
DX: K59.00 Constipation, unspecified (principal); Z90.49 Acquired absence of other specified parts of digestive tract
CPT/HCPCS: 74018

== ENCOUNTER → 2018-01-20 | Outpatient (CLI) | payer OTHER ==
--- NOTE | 2018-01-20 15:53 | RAD ---
KUB Clinical indications: Abdominal pain. FINDINGS: No obstructive bowel pattern is seen. The osseous structures are intact. No radiopaque stone is evident. IMPRESSION: No significant abnormality. Electronically signed by: Jesse Nguyen MD (01/20/2018 3:50 PM) [facility]
== END | disposition home or self-care (01) ==
LOC: US 12:32
PROVIDERS: ATTEND Family Medicine
DX: R10.84 Generalized abdominal pain (principal); F32.9 Major depressive disorder, single episode, unspecified; F41.9 Anxiety disorder, unspecified; Z90.49 Acquired absence of other specified parts of digestive tract
CPT/HCPCS: 74018

== ENCOUNTER → 2018-01-28 | Outpatient (CLI) | payer OTHER ==
--- NOTE | 2018-01-28 12:47 | RAD ---
Radionuclide gastric emptying study, 01/28/2018: HISTORY: Nausea, vomiting, bloating for 2 months The study was performed utilizing a solid test meal radiolabeled with 2.2 mCi of technetium 99m sulfur colloid. The following gastric retention values were obtained: 60 minutes-49.7 percent 2 hours-32 percent 3 hours-16.6 percent 4 hours-6.5 percent These values are considered to be in the normal range. IMPRESSION: Normal gastric emptying study. Electronically signed by: Yo Powell MD (01/28/2018 12:44 PM) [facility]
== END | disposition home or self-care (01) ==
LOC: NM 07:24
PROVIDERS: ATTEND Family Medicine
DX: R11.2 Nausea with vomiting, unspecified (principal); R10.84 Generalized abdominal pain; F41.9 Anxiety disorder, unspecified; F32.9 Major depressive disorder, single episode, unspecified; Z87.440 Personal history of urinary (tract) infections
CPT/HCPCS: 78264; A9541

== ENCOUNTER 2018-02-09 01:53 | Emergency (ER) | payer OTHER ==
[~2018-02-09] VITALS: Ht 157.5 cm; Wt 46.1 kg
--- NOTE | 2018-02-09 02:10 | ED.ADGEN ---
Past History Past Medical History: Anxiety, Constipation, Depression, UTI, Other Past Surgical History: Appendectomy Alcohol Use: None Drug Use: Marijuana Adult General Chief Complaint Chief Complaint ".. I was on skate board..... and I fell off hitting the back of my head... I also got my Rt. elbow scraped up and my Rt. knee...".. " I still got a head ache.. I ve vomited two times.. and the light hurts my eyes.. and I am still dizzy..." HPI HPI Patient is a 22 year old female who presents with above hx and complaints of head jury while skate boarding. Pt. also has abrasion to Rt. elbow and Rt. knee. Pt. was not wearing any protective equipment. Pt. injury occurred at approximately 1700 hrs. Pt. states she was stunned with the blow to head. Pt. states no improvement of head ache, and has vomited. Pt. states she continues to have dizzy episodes and nausea. Eyes are sensitive to light. Pt. states took two acetaminophen at 2200 hrs. Pt. is ambulatory without problems. Pt. has hx or recurrent UTI's and follows with Dr. Saavedra. Review of Systems Review of Systems Constitutional: Denies fever or chills [] Eyes: Denies change in visual acuity, redness, or eye pain []c/o of photophobia HENT: Denies nasal congestion or sore throat [] Respiratory: Denies cough or shortness of breath [] Cardiovascular: No additional information not addressed in HPI [] GI: Denies abdominal pain, nausea, vomiting, bloody stools or diarrhea [] : Denies dysuria or hematuria [] Musculoskeletal: Denies back pain or joint pain [] Integument: Denies rash or skin lesions [] Neurologic: C/O's of headache, Denies focal weakness or sensory changes []. Complaints of dizziness. Endocrine: Denies polyuria or polydipsia [] All other systems were reviewed and found to be within normal limits, except as documented in this note. Family History Family History Non-contributory Current Medications Current Medications Current Medications Medications (Trade) Dose Ordered Sig/Rahel Start Time Stop Time Status Last Admin Dose Admin Acetaminophen (Tylenol) 1,000 mg 1X ONCE 02/09/18 04:15 02/09/18 04:16 UNV Ondansetron HCl (Zofran Odt) 8 mg 1X ONCE 02/09/18 02:30 02/09/18 03:51 DC 02/09/18 02:42 8 MG Tetanus/ Diphtheria Toxoids Adsorbed (Tenivac Vial) 0.5 ml ONCE ONCE 02/09/18 02:30 02/09/18 03:51 DC Allergies Allergies Allergies Coded Allergies Type Severity Reaction Last Updated Verified No Known Drug Allergies 02/09/18 No Physical Exam Physical Exam Constitutional: Well developed, well nourished, moderately acute distress, non- toxic appearance. [] HENT: Normocephalic, complaints of posterior head pain on palpation., bilateral external ears normal, oropharynx moist, no oral exudates, nose normal. T/Ms clear. Eyes: PERRLA, EOMI, conjunctiva normal, no discharge. [] Photophobia. Neck: Normal range of motion, no tenderness, supple, no stridor. [] Cardiovascular:Heart rate regular rhythm, no murmur [] Lungs & Thorax: Bilateral breath sounds equal at apex on auscultation [] Abdomen: Bowel sounds normal, soft, no tenderness, no masses, no pulsatile masses. [] Skin: Warm, dry, no erythema, no rash. [] Small abrasion to Rt. elbow and Rt. knee. Back: No tenderness, no CVA tenderness. [] Extremities: Rt. elbow and knee tenderness, no cyanosis, no clubbing, ROM intact , no edema. [] Neurologic: Alert and oriented X 3, No gross motor or sensory function deficits, no focal deficits noted. []DTR's + 2 patella and brachial. Label Rewinder equal. No drift. + photophobia. Psychologic: Affect anxious, judgement normal, mood normal. [] Current Patient Data Vital Signs Vital Signs Date Time Temp Pulse Resp B/P (MAP) Pulse Ox O2 Delivery O2 Flow Rate FiO2 02/09/18 02:00 98.2 88 20 96 Room Air Lab Results Laboratory Tests Test 02/09/18 01:24 02/09/18 02:00 POC Urine HCG, Qualitative hcg negative (Negative) Urine Collection Type Unknown Urine Color Yellow Urine Clarity Clear Urine pH 7.0 Urine Specific Mamou 1.020 Urine Protein Neg (NEG-TRACE) Urine Glucose (UA) Neg mg/dL (NEG) Urine Ketones (Stick) Trace mg/dL (NEG) Urine Blood Neg (NEG) Urine Nitrite Neg (NEG) Urine Bilirubin Neg (NEG) Urine Urobilinogen Dipstick 0.2 mg/dL (0.2 mg/dL) Urine Leukocyte Esterase Neg (NEG) Urine Opiates Screen Neg (NEG) Urine Methadone Screen Neg (NEG) Urine Barbiturates Neg (NEG) Urine Phencyclidine Screen Neg (NEG) Urine Amphetamine/Methamphetamine Neg (NEG) Urine Benzodiazepines Screen Neg (NEG) Urine Cocaine Screen Neg (NEG) Urine Cannabinoids Screen Neg (NEG) Urine Ethyl Alcohol Neg (NEG) EKG EKG [] Radiology/Procedures Radiology/Procedures My interpretation of CT head shows[]no shift, mass, bleed, or fx. See formal report when available. Course & Med Decision Making Course & Med Decision Making Pertinent Labs and Imaging studies reviewed. (See chart for details) [] Final Impression Final Impression 1. Head Injury 2. Contusions- Rt. Elbow and Knee[] 3. Abrasions to Rt. Elbow and Knee 4. Concussion Dragon Disclaimer Dragon Disclaimer This electronic medical record was generated, in whole or in part, using a voice recognition dictation system. SERGIO MORATAYA MD Feb 09, 2018 02:10
[2018-02-09] MEDS ORDERED: TETANUS AND DIPHTHERIA TOX/PF 0.5 ML VIAL. VAX IM ONE (02:30)
[2018-02-09] MEDS ORDERED: ONDANSETRON ODT 4 MG TAB.RAPDIS PO ONE (02:30)
[2018-02-09 02:41] LABS: BILIRUBIN,URINE NEG (NEG); CLARITY,URINE CLEAR; COLOR,URINE YELLOW; GLUCOSE,URINE NEG (NEG); NITRITE,URINE NEG (NEG); UROBILINOGEN,URINE 0.2 mg/dL (0.2 mg/dL)
[2018-02-09 02:47] LABS: AMPHETAMINE/METHAMPHETAMINE NEG (NEG); BARBITURATES NEG (NEG); BENZODIAZEPINES NEG (NEG); CANNABINOIDS NEG (NEG); COCAINE NEG (NEG); METHADONE NEG (NEG); OPIATES NEG (NEG); PHENCYCLIDINE NEG (NEG)
[2018-02-09 03:56] VITALS: BP 101/53
--- NOTE | 2018-02-09 04:01 | RAD ---
CT head without contrast 02/09/2018 CLINICAL INDICATION: Head trauma. COMPARISON: None. TECHNIQUE: Multiple CT images of the head were obtained without contrast. *One or more of the following individualized dose reduction techniques were utilized for this examination: 1. Automated exposure control. 2. Adjustment of the mA and/or kV according to patient size. 3. Use of iterative reconstruction technique. FINDINGS: No acute intracranial hemorrhage or extra-axial fluid collection. No midline shift. The ventricles and subarachnoid spaces are normal in size and configuration for age. The mcnamara-white matter interfaces are maintained. The basal cisterns are patent. The visualized mastoid air cells and paranasal sinuses are well aerated. IMPRESSION: No acute intracranial hemorrhage. Electronically signed by: Isidoro Aparicio MD (02/09/2018 3:57 AM) [id number]
[2018-02-09] MEDS ORDERED: ACETAMINOPHEN 500 MG TABLET PO ONE ×2 (04:02→04:15)
== END 2018-02-09 04:16 | disposition home or self-care (01) ==
LOC: ER 01:53
DX: S06.0X0A Concussion without loss of consciousness, initial encounter (principal); S50.01XA Contusion of right elbow, initial encounter; S80.01XA Contusion of right knee, initial encounter; Z87.440 Personal history of urinary (tract) infections; V00.131A Fall from skateboard, initial encounter; Y93.51 Activity, roller skating (inline) and skateboarding; Y92.89 Other specified places as the place of occurrence of the external cause; Y99.8 Other external cause status
CPT/HCPCS: 36415; 70450; 80307; 81003; 81025; 99285; Q0162; G0479

== ENCOUNTER 2018-02-13 23:10 | Emergency (ER) | payer SELFPAY ==
[~2018-02-13] VITALS: Ht 157.5 cm; Wt 46.1 kg
[2018-02-13 23:46] VITALS: BP 105/69
--- NOTE | 2018-02-14 00:04 | PHYS DOC ---
Past History Past Medical History: Anxiety, Bipolar, Constipation, Depression, UTI, Other Past Surgical History: Appendectomy Alcohol Use: None Drug Use: Marijuana Adult General Chief Complaint Chief Complaint: PSYCH EVALUATION HPI HPI 22-year-old female presents at the advice of law enforcement for suicidal ideation. The patient was having an argument with her boyfriend and during the argument she started saying that she "didn't want to be here anymore". Boyfriend became concerned that she was expressing suicidal ideation he called police. The patient told the police that she did not have suicidal intent, but they recommended she come here for evaluation anyway. She agreed to comply with the request. At this time, she underwent denies suicidal thoughts, suicidal ideation, suicide plan or homicidal ideation. She states that she was just angry and was saying stupid things. [facility] and diagnosed with manic depression. She has had no further incidents since then. Review of Systems Review of Systems Constitutional: Denies fever or chills [] Eyes: Denies change in visual acuity, redness, or eye pain [] HENT: Denies nasal congestion or sore throat [] Respiratory: Denies cough or shortness of breath [] Cardiovascular: No additional information not addressed in HPI [] GI: Denies abdominal pain, nausea, vomiting, bloody stools or diarrhea [] : Denies dysuria or hematuria [] Musculoskeletal: Denies back pain or joint pain [] Integument: Denies rash or skin lesions [] Neurologic: Denies headache, focal weakness or sensory changes [] Endocrine: Denies polyuria or polydipsia [] All other systems were reviewed and found to be within normal limits, except as documented in this note. Allergies Allergies Allergies Coded Allergies Type Severity Reaction Last Updated Verified No Known Drug Allergies 02/09/18 No Physical Exam Physical Exam Constitutional: Well developed, well nourished, no acute distress, non-toxic appearance. [] HENT: Normocephalic, atraumatic, bilateral external ears normal, oropharynx moist, no oral exudates, nose normal. [] Eyes: PERRLA, EOMI, conjunctiva normal, no discharge. [] Neck: Normal range of motion, no tenderness, supple, no stridor. [] Cardiovascular:Heart rate regular rhythm, no murmur [] Lungs & Thorax: Bilateral breath sounds clear to auscultation [] Abdomen: Bowel sounds normal, soft, no tenderness, no masses, no pulsatile masses. [] Skin: Warm, dry, no erythema, no rash. [] Back: No tenderness, no CVA tenderness. [] Extremities: No tenderness, no cyanosis, no clubbing, ROM intact, no edema. [] Neurologic: Alert and oriented X 3, normal motor function, normal sensory function, no focal deficits noted. [] Psychologic: Affect normal, judgement normal, mood normal. [] Current Patient Data Vital Signs Vital Signs Date Time Temp Pulse Resp B/P (MAP) Pulse Ox O2 Delivery O2 Flow Rate FiO2 02/13/18 23:10 98.4 77 16 100 Room Air EKG EKG [] Radiology/Procedures Radiology/Procedures [] Course & Med Decision Making Course & Med Decision Making Pertinent Labs and Imaging studies reviewed. (See chart for details) The patient appears to be in her right mind and is fully cooperative with my questions and exam. She consistently denies any suicidal ideation. She realizes that what she was saying could be interpreted as suicidal thoughts, but denies that she is having these. She was angry and saying things that she didn't mean. I believe she has low lethality. She will be going home with her roommate who lives with her. She is stable for discharge at this time. [] Dragon Disclaimer Dragon Disclaimer This electronic medical record was generated, in whole or in part, using a voice recognition dictation system. Departure Departure: Referrals: RAJIV AWAD DO (PCP) GLADYS NASH DO Feb 14, 2018 00:04
== END 2018-02-14 00:07 | disposition home or self-care (01) ==
LOC: ER 23:10
DX: R45.851 Suicidal ideations (principal); F41.9 Anxiety disorder, unspecified; F31.9 Bipolar disorder, unspecified; Z87.440 Personal history of urinary (tract) infections
CPT/HCPCS: 99281